=== PATIENT | male | born 1990 | race Caucasian/White ===

== ENCOUNTER 2018-02-07 07:16 | Emergency (ER) | payer OTHER ==
[2018-02-07 07:15] VITALS: O2SAT 100
[2018-02-07 07:40] LABS: AUTOMATED NEUTROPHIL # 2.8 TH/MM3 (1.8-7.7); BASOPHIL % 0.7 % (0.0-2.0); EOSINOPHIL # 0.2 TH/MM3 (0-0.4); EOSINOPHIL % 4.5 % (0.0-4.0); HEMATOCRIT 42.6 % (39.0-51.0); HEMOGLOBIN 14.6 GM/DL (13.0-17.0); LYMPH % 31.6 % (9.0-44.0); LYMPHOCYTE # 1.7 TH/MM3 (1.0-4.8); MEAN CELL VOLUME 83.4 FL (80.0-100.0); MEAN CORPUSCULAR HEMOGLOBIN 28.6 PG (27.0-34.0); MEAN CORPUSCULAR HGB CONC 34.3 % (32.0-36.0); MEAN PLATELET VOLUME 11.8 FL (7.0-11.0); MONO % 11.2 % (0.0-8.0); MONOCYTE # 0.6 TH/MM3 (0-0.9); PLATELET COUNT 155 TH/MM3 (150-450); RED BLOOD COUNT 5.11 MIL/MM3 (4.50-5.90); RED CELL DISTRIBUTION WIDTH 13.5 % (11.6-17.2); WHITE BLOOD COUNT 5.3 TH/MM3 (4.0-11.0)
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
[2018-02-07 07:49] LABS: PROTHROMBIN TIME - PATIENT 10.5 SEC (9.8-11.6)
[2018-02-07] MEDS ORDERED: IOHEXOL 350 MG/ML 10 ML VIAL (for RAD DIAG) IVCONTRAST ONE (07:51)
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
[2018-02-07] MEDS ORDERED: DIPHTH/TETANUS/ACEL PERTUSSIS (BOOSTER) 0.5 ML VIAL/PFS IM ONE (08:10)
[2018-02-07 08:11] VITALS: BP 127/72; PULSE 85; RESP 14; O2SAT 100
[2018-02-07] MEDS ORDERED: SODIUM CHLOR 0.9% 1000 ML INJ 1,000 ML IV ONE ×2 (08:15→08:45)
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
[2018-02-07] MEDS ORDERED: ONDANSETRON HCL 4 MG/2 ML VIAL IV PUSH ONE (08:45)
[2018-02-07] MEDS ORDERED: MORPHINE SULFATE 8 MG/ML INJ IV PUSH ONE (08:45)
[2018-02-07 09:00] VITALS: BP 140/89; PULSE 90; RESP 16; O2SAT 100
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
[2018-02-07 10:47] VITALS: BP 131/74
--- NOTE | 2018-02-07 19:05 | EKG ---
Date Performed: 02/07/2018 Time Performed: 08:12:33 PTAGE: 89 years EKG: Sinus rhythm POSSIBLE LEFT ATRIAL ENLARGEMENT INCOMPLETE RIGHT BUNDLE BRANCH BLOCK BORDERLINE ECG NO PREVIOUS TRACING DOCTOR: Ryne Claudio Interpretating Date/Time 02/07/2018 19:04:44
== END 2018-02-07 10:50 | disposition home or self-care (01) ==
LOC: NEPI 07:16 → EDBD 07:16 → NEPE 10:50
DX: M51.37 Other intervertebral disc degeneration, lumbosacral region (principal); M54.6 Pain in thoracic spine; R41.82 Altered mental status, unspecified; I88.0 Nonspecific mesenteric lymphadenitis; R59.0 Localized enlarged lymph nodes; I45.10 Unspecified right bundle-branch block; T14.8XXA Other injury of unspecified body region, initial encounter; V49.9XXA Car occupant (driver) (passenger) injured in unspecified traffic accident, initial encounter
CPT/HCPCS: 70450; 71045; 71260; 72125; 72129; 72132; 72170; 74177; 80048; 80307; 85025; 85610; 85730; 86850; 86900; 86901; 93005; 96361; 96374; 96375; 99291; J2270; J2405; J7030; Q9967; G0390